=== PATIENT | female | born 2000 | race Caucasian/White ===

== ENCOUNTER 2023-03-27 18:24 | Emergency (ER) | payer BC, SELFPAY ==
[2023-03-27 18:31] VITALS: BP 107/65; BMI 20.3
[2023-03-27 18:51] LABS: % Basophils 0.4 % (0-2); % Eosinophils 0.6 % (0-6); % Immature Granulocytes 0.4 % (0-0.5); % Lymphocytes 9.5 % (20.5-51.1); % Monocytes 3.9 % (1.7-9.3); % Neutrophils 85.2 % (42.2-75.2); Absolute Eosinophils 0.1 10^3/uL (0-0.7); Absolute Lymphocytes 0.9 10^3/uL (1.2-3.4); Absolute Monocytes 0.4 10^3/uL (0.1-0.6); Hematocrit 37.2 % (37.0-47.0); Mean Corp Hgb Conc. 34.9 g/dL (33.0-37.0); Mean Corpuscular Hgb 32.4 pg (27.0-31.0); Mean Corpuscular Volume 92.8 fL (81.0-99.0); Mean Platelet Volume 9.2 fL (7.4-10.4); Nucleated Red Blood Cells % 0 %; Platelet Count 280 10^3/uL (130-400); Red Blood Cell Count 4.01 10^6/uL (4.20-5.40); Red Cell Dist. Width 11.5 % (11.5-14.5); White Blood Cell Count 9.4 10^3/uL (4.8-10.8)
[2023-03-27 19:07] LABS: ALT (SGPT) 11 U/L (0-35); AST (SGOT) 23 U/L (14-36); Albumin 4.3 g/dl (3.5-5.0); Alkaline Phosphatase 57 U/L (38-126); Blood Urea Nitrogen 15 mg/dl (7-17); Carbon Dioxide 21 mmol/L (22-30); Chloride 105 mmol/L (98-107); Estimated Creatinine Clearance 91 ml/min; Glucose 80 mg/dl (70-99); Lipase 104 U/L (23-300); Sodium 132 mmol/L (135-145); Total Bilirubin 1.1 mg/dl (0.2-1.3); Total Protein 6.9 g/dl (6.3-8.2); eGFR > 60.00
[2023-03-27 20:47] VITALS: BP 117/77
[2023-03-27] MEDS: NSS 1000 IV (21:34)
[2023-03-27 21:54] LABS: HCG, Serum Qualitative Screen Negative
--- NOTE | 2023-03-27 21:54 | ED.GENMED ---
History of Present Illness
General
Chief Complaint: Withdrawal Symptoms
Source: patient
Exam Limitations: none
Time Seen by Provider: 03/27/23 20:58
Nursing documentation reviewed up to this point in time: agreed with
Travel History
Have you had any contact with someone who has COVID-19?: No
Do you have any symptoms of coronavirus? Fever > 100 degrees, chills, cough, shortness of breath, sore throat, loss of taste or smell, muscle aches, or headache?: No
History of Present Illness
History of Present Illness:
Patient presents ED secondary to sudden onset of chest palpitations, hyperventilation, bilateral arm numbness/tingling sensation, along with nausea and vomiting earlier today. At the time of evaluation ED, however, patient states that she feels
improved. Denies chest pain. Denies shortness of breath. Denies diarrhea. Denies fever or chills. Denies recent illness. Patient states that she feels as though she is going through marijuana withdrawal, and she stopped smoking marijuana
abruptly 2 days ago. Denies use of any other illicit medications. Of note, patient states that she currently is experiencing a lot of 'health problems', which is being evaluated by her primary care physician.
Past History
Past History
ED Past Medical History: Asthma
ED Past Surgical History: Gynecological and Orthopedic
Social History
Tobacco: Non-smoker
Alcohol: Other
Drug: Marijuana
Personal: Single
Living: with family
Employment: Employed
Family History
Family History: Other
Review of Systems
Review of Systems
Allergies reviewed?: Yes
All Other Systems: ROS reviewed and negative except as documented in HPI and ROS
Constitutional: Reports no symptoms
EENT: Reports no symptoms
Respiratory: Reports no symptoms
Cardiac: Reports palpitations
ABD/GI: Reports nausea and vomiting
: Reports no symptoms
Musculoskeletal: Reports no symptoms
Skin: Reports no symptoms
Neurological: Reports numbness; Denies headache or weakness
Phy Exam
Physical Exam
Physical Exam:
Physical Exam
General: no apparent distress, not acutely ill. afebrile
Head: nc/at. eomi
Neck: supple. no meningeal signs.
Heart: s1/s2 regular rate and rhythm, no murmur. equal radial pulses.
Lungs: no acute respiratory distress. clear bilaterally
Abdomen: normal bowel sounds. not tender.
Neuro: alert and oriented. no focal neurological deficits
Skin: no rash
Psychiatric: well kept. interactive and cooperative
Extremities: no edema. no calf tenderness.
Course
Orders/Labs/Results
Orders:
Orders
03/27/23 18:39
Complete Blood Count/With Diff Urgent
Comprehensive Metabolic Panel Urgent
HCG, Serum Qualitative Screen Urgent
Comment: ADD ON
Lipase Urgent
03/27/23 21:26
Add On- LAB Urgent
Tests Added?: serum hcg, qualitative
03/27/23 21:27
0.9% Sodium Chloride 1000 ml [Nss] 1,000 ml IV BOLUS
Abnormal Lab Results
03/27/23
18:39
RBC 4.01 L 10^6/uL
(4.20-5.40)
MCH 32.4 H pg
(27.0-31.0)
Absolute Neuts (auto) 8.0 H 10^3/uL
(1.4-6.5)
Absolute Lymphs (auto) 0.9 L 10^3/uL
(1.2-3.4)
Neutrophils % 85.2 H %
(42.2-75.2)
Lymphocytes % 9.5 L %
(20.5-51.1)
Sodium 132 L mmol/L
(135-145)
Carbon Dioxide 21 L mmol/L
(22-30)
03/27/23 18:39
03/27/23 18:39
Vital Signs
Initial and Last Documented VS:
Initial Vital Signs
Temp Pulse Resp BP Pulse Ox
98.7 F 60 20 107/65 100
03/27/23 18:31 03/27/23 18:31 03/27/23 18:31 03/27/23 18:31 03/27/23 18:31
Last Documented Vital Signs
Temp Pulse Resp BP Pulse Ox
98.5 F 79 18 104/71 100
03/27/23 20:47 03/27/23 22:01 03/27/23 22:01 03/27/23 22:01 03/27/23 22:01
MDM/Problems Addressed
MDM/Problems Addressed:
History and exam consistent with likely nonspecific nausea and vomiting episodes, possibly related to abrupt cessation of marijuana, along with underlying anxiety. Fortunately, patient is afebrile, with spontaneous improvement in symptoms, along
with stable vital signs. Decision made to administer IV fluids prior to discharge, along with recommendation to continue to follow-up with her primary care physician as an outpatient. In addition, precautions provided regarding use of marijuana,
as she is obtaining products from her friends, as compounds may not be as pure as anticipated. Patient expresses understanding at time of discharge.
*Critical Care Note
Total Time (30-74mins, 75-104mins- exclusive of procedures): Not Applicable
ED Attending Note
-
Portions of this chart may have been created with voice recognition software.� Occasional wrong word or��sound alike� substitutions may have occurred due to the inherent limitations of voice recognition software.
Discharge Plan
Departure
Patient Disposition: Home (Routine Discharge)
Date of Disposition: 03/27/23
Time of Disposition: 21:57
Patient with high blood pressure during this ER visit?: No
Condition: Good
Discharge Problem:
Nausea and vomiting
Instructions: Nausea and Vomiting, Adult (DC)
Prescriptions:
New
ondansetron 4 mg Tablet,Disintegrating
4 mg PO TIDPRN PRN (Reason: nausea/vomiting) Qty: 12 0RF
No Action
penicillin V potassium 500 MG tablet
500 mg PO BID 10 Days Qty: 19 0RF
dicyclomine 10 mg capsule
10 mg PO QID PRN (Reason: abdominal pain) Qty: 20 0RF
ciprofloxacin HCl [Cipro] 250 mg tablet
250 mg PO BID Qty: 10 0RF
Referrals:
UNKNOWN - PT DOES,NOT KNOW [Unknown Provider] -
Activity Restrictions/Additional Instructions:
As discussed, please follow-up with your primary care physician for continued evaluation and treatment. Your prescription has been sent electronically to [facility] in [place].
Interventions
Interventions:
*Risk Screen - Suicide Last Done: 03/27/23 18:31
*General Assessment Last Done: 03/27/23 21:59
*Neglect/Abuse Screening Last Done: 03/27/23 18:31
ED- Fall Risk Assessment Last Done: 03/27/23 21:21
*ED COVID-19 Vaccine History Last Done: 03/27/23 18:31
*Nursing Disposition Last Done: 03/27/23 22:55
ED- Neurological Assessment Last Done: 03/27/23 20:46
ED-Psychological Assessment Last Done: 03/27/23 20:48
Discharge Date and Time
Discharge Date/Time: 03/27/23 22:56
[2023-03-27 22:01] VITALS: BP 104/71
== END 2023-03-27 22:56 | disposition home or self-care (01) ==
LOC: EMR 18:24
PROVIDERS: Emergency Medicine; EMERGENCY PHYSICIAN Emergency Medicine
DX: R11.2 Nausea with vomiting, unspecified (principal); R00.2 Palpitations; J45.909 Unspecified asthma, uncomplicated; Z55.6 Problems related to health literacy
CPT/HCPCS: 99283; 96360; 80053; 83690; 84703; 85025